=== PATIENT | female | born 1950 | race Caucasian/White ===

== ENCOUNTER → 2017-12-09 | Outpatient (CLI) | payer OTHER | END | disposition home or self-care (01) | DX: M17.11 Unilateral primary osteoarthritis, right knee (principal); R26.2 Difficulty in walking, not elsewhere classified; M25.561 Pain in right knee; M25.661 Stiffness of right knee, not elsewhere classified; M62.81 Muscle weakness (generalized); Z74.1 Need for assistance with personal care | CPT/HCPCS: 97161 GP; 97165 GO; 97530 GP; 97535 GO; G8978 GP; G8979 GP; G8980 GP; G8987 GO; G8988 GO; G8989 GO ==

== ENCOUNTER 2017-12-29 21:46 | Inpatient (IN) | payer OTHER ==
[~2017-12-29] VITALS: Ht 160 cm; Wt 77.1 kg
[~2017-12-29 21:46] MED LIST: MELOXICAM15 MG PO; PRAVASTATIN SOD10 MG PO
[2017-12-30 08:04] VITALS: BP 141/88
[2017-12-30 13:47] VITALS: BP 122/69
[2017-12-30 15:03] VITALS: BP 134/66
[2017-12-30 19:30] VITALS: BP 125/72
[2017-12-31 00:15] VITALS: BP 105/59
[2017-12-31 04:12] VITALS: BP 127/65
[2017-12-31 05:18] LABS: HEMATOCRIT 34.8 % (36.0-46.0); MCV 91.8 FL (83-99)
[2017-12-31 05:19] LABS: HEMOGLOBIN 10.9 G/DL (11.9-15.5)
[2017-12-31 05:57] LABS: CHLORIDE 108 MEQ/L (99-109); CREATININE 0.8 MG/DL (0.6-1.3); GFR ESTIMATE (CALCULATED) > 59 mL/min/; GLUCOSE 113 mg/dL (70-99); POTASSIUM 5.1 MEQ/L (3.7-5.4); SODIUM 138 MEQ/L (136-147); UREA NITROGEN (BUN) 21 mg/dL (9-23)
[2017-12-31 08:00] VITALS: BP 121/65
[2017-12-31 11:40] VITALS: BP 114/58
[2017-12-31 15:28] VITALS: BP 115/61
[2017-12-31 19:52] VITALS: BP 136/63
[2018-01-01 00:09] VITALS: BP 117/59
[2018-01-01 04:22] VITALS: BP 135/65
[2018-01-01 05:54] LABS: HEMATOCRIT 30.6 % (36.0-46.0); MCV 87.9 FL (83-99)
[2018-01-01 08:25] VITALS: BP 139/75
[2018-01-01] MEDS ORDERED: ELIQUIS2.5 MG PO (08:44)
[2018-01-01] MEDS ORDERED: ENDOCET 5-3251 EACH PO (08:44)
[2018-01-01] MEDS ORDERED: SENNA PLUS TAB1 EACH PO (08:44)
[2018-01-01] MEDS ORDERED: CELECOXIB200 MG PO (08:44)
[2018-01-01 11:40] VITALS: BP 138/64
== END 2018-01-01 14:45 | DRG 470 ==
LOC: ENRESERV 21:46 → 2SOUTH 12-30 06:55 → 3WEST 12-30 13:11 → 2SOUTH 12-30 13:12 → 3WEST 01-01 14:45
PROVIDERS: Orthopaedic Surgery
PROC: 0SRC0J9 Replacement of Right Knee Joint with Synthetic Substitute, Cemented, Open Approach (ICD-10-PCS; principal; 2017-12-30)
DX: M17.11 Unilateral primary osteoarthritis, right knee (principal); D62 Acute posthemorrhagic anemia; E78.00 Pure hypercholesterolemia, unspecified
CPT/HCPCS: 80048; 85014; 85018; C1713; J0131; J0690; J1100; J1885; J2250; J2405; J2795; J3010; J7050; J7120